=== PATIENT | female | born 1965 | race African-American/Black ===

== ENCOUNTER 2023-08-09 08:54 | Emergency (ER) | payer MEDICAID, OTHER ==
[~2023-08-09] VITALS: Ht 180.3 cm; Wt 81.0 kg
[~2023-08-09 08:54] MED LIST: BACL-141 PO; FENT1PAT4 TD; GABA-290 PO; INSU3INS6 SUBCUT; LISI2.5T47 PO; PREG150C PO; PREG200C PO
[2023-08-09 09:12] VITALS: BP 168/94; PULSE 65; RESP 18; TEMP 98.3; O2SAT 98
== END 2023-08-09 09:41 | disposition home or self-care (01) ==
LOC: ER 08:54
DX: Z76.0 Encounter for issue of repeat prescription (principal); Z88.5 Allergy status to narcotic agent
CPT/HCPCS: 99281

== ENCOUNTER 2024-04-27 14:13 | Emergency (ER) | payer MEDICAID ==
[~2024-04-27] VITALS: Ht 180.3 cm; Wt 81.0 kg
[2024-04-27 14:26] VITALS: BP 111/63; PULSE 79; RESP 20; TEMP 98.2; O2SAT 97
== END 2024-04-27 18:47 | disposition home or self-care (01) ==
LOC: ER 14:13
DX: S81.011A Laceration without foreign body, right knee, initial encounter (principal); E11.9 Type 2 diabetes mellitus without complications; I10 Essential (primary) hypertension; Z98.890 Other specified postprocedural states; Z88.5 Allergy status to narcotic agent; W18.39XA Other fall on same level, initial encounter; Y93.89 Activity, other specified; Y92.89 Other specified places as the place of occurrence of the external cause; Y99.8 Other external cause status
CPT/HCPCS: 12002; 99283

== ENCOUNTER 2025-05-29 21:33 | Emergency (ER) | payer MEDICAID, OTHER ==
[~2025-05-29] VITALS: Ht 182.9 cm; Wt 82.0 kg
[2025-05-29 21:41] VITALS: O2SAT 100
[2025-05-29 23:05] LABS: HEMATOCRIT. 28.3 % (36.0-48.0); HEMOGLOBIN. 9.6 g/dL (12.0-16.0); MEAN PLATELET VOLUME 8.2 fl (7.4-10.4); PLATELET 199 x1000/uL (130-400); RED BLOOD CELL COUNT 3.06 mill/uL (4.2-5.4); RED CELL DISTRIBUTION WIDTH 13.8 % (11.6-14.6)
[2025-05-29 23:16] LABS: BAND% 1.0 % (1.0-6.0); EOSINOPHILS % MANUAL 1.0 % (0.0-5.0); LYMPHOCYTES % MANUAL 31.0 % (20.0-60.0); MONOCYTES % MANUAL 19.0 % (2.0-8.0); NEUTROPHILS % MANUAL 48.0 % (45.0-75.0); PLATELET ESTIMATE NORMAL
[2025-05-29 23:20] LABS: CREATININE 1.9 mg/dL (0.6-1.0); INR 1.0
[2025-05-29 23:21] LABS: ETHANOL BLOOD < 10 mg/dL (<10); UREA NITROGEN BLOOD 40 mg/dL (9-23)
[2025-05-29 23:22] LABS: TROPONIN I HIGH SENSITIVITY 4 ng/L (3.0-34)
[2025-05-30] MEDS ORDERED: ACET-2708 MT (00:11)
[2025-05-30] MEDS ORDERED: CEPH500T MT (00:11)
[2025-05-30] MEDS: ACETAMINOPHEN 325MG TABLET PO ONE (00:30)
[2025-05-30] MEDS: BACITRACIN 14GM TUBE TOP ONE (00:32)
[2025-05-30] MEDS: INSULIN REGULAR (HUMULIN R) 1000UNITS/10ML VIAL SUBCUT NR (00:32)
[2025-05-30] MEDS: MECLIZINE 25MG TABLET PO ONE (01:13)
[2025-05-30 03:58] VITALS: BP 91/81; PULSE 69; RESP 16; TEMP 36.8; O2SAT 98
== END 2025-05-30 04:01 | disposition home or self-care (01) ==
LOC: ER 21:33 → CANBEDREQ 05-30 02:13 → ER 05-30 04:01
DX: E11.65 Type 2 diabetes mellitus with hyperglycemia (principal); D64.9 Anemia, unspecified; I10 Essential (primary) hypertension; Z88.5 Allergy status to narcotic agent; Z79.899 Other long term (current) drug therapy; Z98.890 Other specified postprocedural states
CPT/HCPCS: 80048; 80320; 83880; 83690; 85025; 85610; 85730; 84484; 36415; 71045; 73630; 93970; 93005; 99285; 82962; 96372; J8597; J1815; G0480